=== PATIENT | female | born 1950 | race Caucasian/White ===

== ENCOUNTER 2023-10-22 19:23 | Emergency (ER) | payer MEDICARE, BC, SELFPAY ==
[2023-10-22 19:28] VITALS: BP 176/100
[2023-10-22 20:54] VITALS: BMI 27.1
--- NOTE | 2023-10-22 20:55 | EDRN ---
Pt says she turned to fix something on the stairs and without turning around she backed down the two stairs and fell, landing on her L elbow. No head injury.
[2023-10-22 20:59] VITALS: BP 160/96
[2023-10-22] MEDS: TYLENOL 650 MG PO (21:34)
--- NOTE | 2023-10-22 22:09 | ED.MUSCINJ ---
HPI-Injury
General
Chief Complaint: Musculo-Skeletal Complaint
Source: patient
Exam Limitations: none
Time Seen by Provider: 10/22/23 21:12
History of Present Illness-Injury
Initial Injury comments:
73-year-old [id number] female presents complaining of left elbow pain starting today. She fell down 2 steps and landed on her elbow. Since then she has had pain and swelling and decreased function to the elbow. No other complaints at this
time
Past History
Past History
ED Past Medical History: HTN, Hypercholesterolemia, NIDDM and Psychiatric (Major depression)
ED Past Surgical History: None
Social History
Tobacco: Non-smoker
Alcohol: None
Drug: None
Personal:
Living: with family
Family History
Family History: Other (Reviewed and non-contributory)
Phy Exam
Physical Exam
Physical Exam:
General: Well-appearing female no acute respiratory distress
Musculoskeletal exam: Left elbow swollen tender over the olecranon process. She has trouble flexing the elbow as well as extending the elbow. The forearm and wrist are nontender. The shoulder is nontender
It is intact without laceration
Vascular has 2+ radial pulse left wrist
Injury Course
Orders/Labs/Results
Orders:
Orders
10/22/23 19:31
CR Elbow - Left Min 3 Views Urgent
Comment:
Reason For Exam: injury
10/22/23 21:30
Acetaminophen [Tylenol] 650 mg PO NOW STA
MDM/Problems Addressed
Differential Diagnosis Includes:
Left elbow pain after fall consider fracture versus dislocation versus contusion
I personally visualized x-rays of left elbow which demonstrate distracted fracture of the olecranon process fracture extending into the proximal diaphysis of the ulna.
Patient was placed in a posterior long-arm splint and given a sling for comfort. I advised Tylenol or ibuprofen. She will follow-up with orthopedics for further evaluation
*Critical Care Note
Total Time (30-74mins, 75-104mins- exclusive of procedures): Not Applicable
ED Attending Note
-
Portions of this chart may have been created with voice recognition software.� Occasional wrong word or��sound alike� substitutions may have occurred due to the inherent limitations of voice recognition software.
Discharge Plan
Departure
Patient Disposition: Home (Routine Discharge)
Date of Disposition: 10/22/23
Time of Disposition: 22:11
Patient with high blood pressure during this ER visit?: No
Discharge Problem:
Closed olecranon fracture
Instructions: Muscle and Bone Pain (DC)
Prescriptions:
No Action
atorvastatin [Lipitor] 80 mg Tablet
80 mg PO DAILY Qty: 0
sertraline 100 mg Tablet
100 mg PO DAILY Qty: 0
clopidogrel [Plavix] 75 mg Tablet
75 mg PO DAILY Qty: 0
lisinopril 20 mg tablet
20 mg PO DAILY
esomeprazole magnesium [Nexium] 40 mg Capsule,Delayed Release(Dr/Ec)
40 mg PO DAILY
alpha lipoic acid 600 mg Tablet
600 mg PO DAILY
insulin aspart U-100 [Novolog FlexPen U-100 Insulin] 300 UNITS/3 ML insulin pen
See Rx Instructions .ROUTE .COMPLEX
Rx Instructions:
Follow your existing sliding scale at home
amlodipine 10 mg tablet
10 mg PO DAILY Qty: 14 0RF
diphenhydramine-acetaminophen [Tylenol PM Extra Strength] 25-500 mg Tablet
2 tab PO HS
insulin glargine [Semglee Pen U-100 Insulin] 100 unit/mL (3 mL) Insulin Pen
25 unit SC HS
Referrals:
Rakesh Briceño DO [Family Provider] -
Corbin Wolfe MD [Active] -
Activity Restrictions/Additional Instructions:
Keep splint on and dry. Continue with Tylenol for pain. Use sling for support. Follow-up with orthopedics for further evaluation
Interventions
Interventions:
*Risk Screen - Suicide Last Done: 10/22/23 19:28
*General Assessment Last Done: 10/22/23 19:28
*Neglect/Abuse Screening Last Done: 10/22/23 19:28
*ED COVID-19 Vaccine History Last Done: 10/22/23 20:49
ED-Musculoskeletal Assessment Last Done: 10/22/23 20:57
Discharge Date and Time
Print Language: [place]
== END 2023-10-22 22:24 | disposition home or self-care (01) ==
LOC: EMR 19:23
PROVIDERS: EMERGENCY PHYSICIAN Emergency Medicine; FAMILY PHYSICIAN Family Medicine
DX: S52.022A Displaced fracture of olecranon process without intraarticular extension of left ulna, initial encounter for closed fracture (principal); W10.9XXA Fall (on) (from) unspecified stairs and steps, initial encounter; E11.9 Type 2 diabetes mellitus without complications; E78.00 Pure hypercholesterolemia, unspecified; I10 Essential (primary) hypertension
CPT/HCPCS: 29105; 99283; 73080

== ENCOUNTER → 2023-12-29 17:56 | Outpatient (REF) | payer MEDICARE, BC, SELFPAY | LOC: MRI 17:56 | PROVIDERS: ATTENDING PHYSICIAN Orthopaedic Surgery; FAMILY PHYSICIAN Family Medicine | DX: S63.8X2A Sprain of other part of left wrist and hand, initial encounter (principal); M25.532 Pain in left wrist | CPT/HCPCS: 73221 ==